=== PATIENT | male | born 2005 | race Caucasian/White ===

== ENCOUNTER 2024-02-25 08:35 | Outpatient (CLI) | payer MEDICAID ==
[~2024-02-25 08:35] MED LIST: HYDR-4353 PO
== END 2024-02-25 23:59 | disposition home or self-care (01) ==
LOC: RAD 08:35
PROVIDERS: ATTEND Nurse Practitioner
DX: S99.922A Unspecified injury of left foot, initial encounter (principal); X58.XXXA Exposure to other specified factors, initial encounter; Y93.89 Activity, other specified; Y92.89 Other specified places as the place of occurrence of the external cause; Y99.8 Other external cause status
CPT/HCPCS: 73620